=== PATIENT | female | born 1975 | race Caucasian/White ===

== ENCOUNTER → 2017-02-28 | Outpatient (CLI) | payer OTHER ==
--- NOTE | 2017-02-28 17:02 | KCIC ---
Bilateral digital screening mammograms: Reason for examination: Routine screening. Comparison is made to previous studies dated 10/01/2011 and 10/05/2010. The skin and nipples show no abnormalities. No abnormal axillary lymph nodes are seen. The breast parenchyma shows scattered fibroglandular density. (Breast density: Category B.) There are new nodular densities in the 10:00 B position of the right breast, in the 4:00 B position of the left breast and in the 2:00 B position of the left breast. Further evaluation with ultrasound is recommended. There are no other new masses, suspicious calcifications or architectural distortions. Impression: New nodules seen bilaterally. Recommend further evaluation with ultrasound. BI-RADS Category 0: Incomplete. Ultrasound follow-up recommended. "Our facility is accredited by the [employer] Mammography [employer]." This patient's information has been entered into a reminder system for the patient to be notified with the results of her examination and a target date for the next mammogram. Electronically signed by: Marietta Sanchez MD (02/28/2017 5:00 PM) [id number]
== END | disposition home or self-care (01) ==
LOC: KCIC MAMMO 14:33
PROVIDERS: ATTEND Specialist
DX: Z12.31 Encounter for screening mammogram for malignant neoplasm of breast (principal)
CPT/HCPCS: G0202; 77067

== ENCOUNTER → 2017-03-14 | Outpatient (CLI) | payer OTHER ==
--- NOTE | 2017-03-15 17:35 | KCIC ---
Bilateral breast ultrasound: Reason for examination: Nodular densities on screening exam. Comparison is made to mammographic exam dated 02/28/2017. Bilateral whole breast ultrasound including evaluation of all 4 quadrants and the retroareolar and axillary regions of both breasts was performed. The right breast shows a 1.2 cm fibrocystic lesion at the 10:00 position 6 cm from the nipple which corresponds to the area of mammographic concern. This has a benign appearance. The left breast shows a 6.7 mm fibrocystic appearing lesion at the 2:00 position 6 cm from the nipple. There is a 7.8 mm fibrocystic lesion in the 4:00 position 2 cm from the nipple. There is also a 1.3 cm fibrocystic type lesion in the 5:30 position 8 cm from the nipple. These findings correspond to mammographic areas of concern. IMPRESSION: Fibrocystic type lesions bilaterally. Recommend 6 month sonographic follow-up. BI-RADS Category 3: Probably Benign. "Our facility is accredited by the [employer] Mammography [employer]." This patient's information has been entered into a reminder system for the patient to be notified with the results of her examination and a target date for the next mammogram. Electronically signed by: Marietta Sanchez MD (03/15/2017 5:32 PM) [id number]
== END | disposition home or self-care (01) ==
LOC: KCIC US 07:52
PROVIDERS: ATTEND Specialist
DX: R92.8 Other abnormal and inconclusive findings on diagnostic imaging of breast (principal)
CPT/HCPCS: 76641